=== PATIENT | male | born 1955 | race Caucasian/White ===

== ENCOUNTER 2020-09-17 10:48 | Emergency (ER) | payer MEDICARE, OTHER ==
[~2020-09-17 10:48] MED LIST: ASPIRIN EC81 MG PO; ELIQUIS5 MG PO; FEOSOL325 MG PO; FLOMAX 0.4 MG0.4 MG PO; LIPITOR40 MG PO; LOPRESSOR25 MG PO; LOVAZA1 GM PO; METFORMIN HCL500 MG PO; NORCO 5-325 TA1 EACH PO; NORVASC2.5 MG PO; PERCOCET 5-3251 EACH PO; PLAVIX75 MG PO; PRAVASTATIN SOD20 MG PO; PROSCAR5 MG PO; TOPROL XL 25MG25 MG PO; VITAMIN D325 MC3 PO
[2020-09-17 11:34] LABS: BASOPHIL 0.3 % (0-2); EOSINOPHIL 0.1 % (0-7); HCT 44.1 % (42.0-52.0); HGB 15.1 g/dl (13.2-18.0); MCH 28.1 pg (25.0-31.0); MCHC 34.2 g/dL (32.0-36.0); MCV 82.1 fL (78.0-100.0); MONOCYTE 5.5 % (0-12); MPV 10.7 fL (6.0-9.5); NEUTROPHIL 84.5 % (41-80); NRBC 0; PLT 183 K/uL (150-400); RBC 5.37 M/uL (4.70-6.00); RDW 15.2 % (11.5-14.0); WBC 15.4 K/uL (4.0-10.5)
[2020-09-17 11:48] LABS: INR 1.46 (0.9-1.2); PROTHROMBIN TIME 16.8 SECONDS (11.4-13.6)
[2020-09-17 11:49] LABS: PTT 41.7 SECONDS (22.2-34.7)
[2020-09-17 12:00] LABS: ALBUMIN 3.1 g/dL (3.4-5.0); BILIRUBIN - TOTAL 1.7 mg/dL (0.2-1.0); BUN/CREAT RATIO (CALC) 15.5 RATIO; CREATININE 1.29 mg/dL (0.67-1.17); GLOBULIN (CALCULATION) 3.9 g/dL; POTASSIUM 3.5 mmol/L (3.5-5.1)
[2020-09-17 12:12] LABS: CKMB 3.6 ng/mL (0.0-3.6)
== END 2020-09-17 16:45 | disposition other institution (70) ==
LOC: FER 10:48
PROVIDERS: Emergency Medicine
DX: I21.4 Non-ST elevation (NSTEMI) myocardial infarction (principal); I49.3 Ventricular premature depolarization; I10 Essential (primary) hypertension; Z20.822 Contact with and (suspected) exposure to COVID-19; Z95.5 Presence of coronary angioplasty implant and graft; Z95.1 Presence of aortocoronary bypass graft; Z88.0 Allergy status to penicillin; Z82.49 Family history of ischemic heart disease and other diseases of the circulatory system
CPT/HCPCS: 36415; 71046; 80053; 82553; 84484; 85025; 85610; 85730; 93005; U0002

== ENCOUNTER 2021-11-25 23:33 | Emergency (ER) | payer MEDICARE ==
[2021-11-25 23:53] LABS: BASOPHIL 0.9 % (0-2); EOSINOPHIL 2.2 % (0-7); HCT 43.9 % (42.0-52.0); HGB 14.8 g/dl (13.2-18.0); LYMPHOCYTE 34.5 % (15-48); MCH 28.4 pg (25.0-31.0); MCHC 33.7 g/dL (32.0-36.0); MCV 84.3 fL (78.0-100.0); MONOCYTE 9.7 % (0-12); MPV 11.1 fL (6.0-9.5); NEUTROPHIL 52.5 % (41-80); NRBC 0; PLT 180 K/uL (150-400); RBC 5.21 M/uL (4.70-6.00); RDW 13.5 % (11.5-14.0); WBC 8.1 K/uL (4.0-10.5)
[2021-11-26 00:01] LABS: INR 1.2 (0.9-1.2); PROTHROMBIN TIME 14.8 SECONDS (11.9-13.9); PTT 36.2 SECONDS (24.9-34.6)
[2021-11-26 00:09] LABS: ALBUMIN 3.5 g/dL (3.4-5.0); BILIRUBIN - TOTAL 0.8 mg/dL (0.2-1.0); BUN/CREAT RATIO (CALC) 14.4 RATIO; CREATININE 1.18 mg/dL (0.67-1.17); GLOBULIN (CALCULATION) 3.2 g/dL; POTASSIUM 3.5 mmol/L (3.5-5.1); TOTAL PROTEIN 6.7 g/dL (6.4-8.2)
== END 2021-11-26 02:44 | disposition home or self-care (01) ==
LOC: FER 23:33
PROVIDERS: Emergency Medicine
DX: R07.89 Other chest pain (principal); I10 Essential (primary) hypertension; Z88.0 Allergy status to penicillin; Z91.040 Latex allergy status
CPT/HCPCS: 36415; 71045; 80053; 83880; 84484; 85025; 85610; 85730; 93005